=== PATIENT | male | born 1985 | race Two or more races ===

== ENCOUNTER 2022-11-04 11:00 | Day surgery (SDC) | payer BC, OTHER ==
[2022-11-01 12:38] VITALS: BMI 23.7
[2022-11-04 11:59] VITALS: RESP 18; TEMP 97.4
[2022-11-04 12:12] VITALS: BP 100/60; PULSE 54
== END 2022-11-04 13:10 | disposition home or self-care (01) ==
LOC: FASU-ENDO 11:00
PROVIDERS: ATTEND Internal Medicine Gastroenterology
PROC: 0DB78ZX Excision of Stomach, Pylorus, Via Natural or Artificial Opening Endoscopic, Diagnostic (ICD-10-PCS; 2022-11-04)
PROC: 0DB48ZX Excision of Esophagogastric Junction, Via Natural or Artificial Opening Endoscopic, Diagnostic (ICD-10-PCS; 2022-11-04)
PROC: 0DB98ZX Excision of Duodenum, Via Natural or Artificial Opening Endoscopic, Diagnostic (ICD-10-PCS; principal; 2022-11-04 12:00)
DX: K29.70 Gastritis, unspecified, without bleeding (principal)
CPT/HCPCS: 88305-TC; 88342-TC

== ENCOUNTER 2022-12-09 11:06 | Day surgery (SDC) | payer BC, OTHER ==
[2022-12-01 12:13] VITALS: BMI 25.7
[2022-12-09] MEDS ORDERED: PROPOFOL 40 ML ONE (12:22)
[2022-12-09] MEDS ORDERED: GLYCOPYRROLATE 0.2 MG/1 ML VIAL ONE (12:50)
[2022-12-09 13:31] VITALS: TEMP 97.8
[2022-12-09 13:41] VITALS: BP 103/58; PULSE 50; RESP 19
== END 2022-12-09 13:35 | disposition home or self-care (01) ==
LOC: FASU-ENDO 11:06
PROVIDERS: ATTEND Internal Medicine Gastroenterology
PROC: 0DBL8ZX Excision of Transverse Colon, Via Natural or Artificial Opening Endoscopic, Diagnostic (ICD-10-PCS; 2022-12-09)
PROC: 0DBM8ZX Excision of Descending Colon, Via Natural or Artificial Opening Endoscopic, Diagnostic (ICD-10-PCS; 2022-12-09)
PROC: 0DBK8ZX Excision of Ascending Colon, Via Natural or Artificial Opening Endoscopic, Diagnostic (ICD-10-PCS; principal; 2022-12-09 12:48)
DX: R19.7 Diarrhea, unspecified (principal); K64.1 Second degree hemorrhoids
CPT/HCPCS: 88305-TC